=== PATIENT | female | born 1985 | race Caucasian/White ===

== ENCOUNTER → 2016-05-09 | Outpatient (REF) | payer BC | END | disposition home or self-care (01) | LOC: M SFHCCLAY 11:06 | PROVIDERS: ATTEND Family Medicine | DX: J02.9 Acute pharyngitis, unspecified (principal) ==

== ENCOUNTER → 2016-08-06 | Day surgery (SDC) | payer BC ==
[~2016-08-06] VITALS: Ht 160 cm; Wt 85.3 kg
[~2016-08-06] MED LIST: CEFUROXIME INJ 750 MG VIAL (J0697) As Ordered ONE; EXCETAB80 PO; LIDOCAINE 2% INJ 100 MG/5 ML SDV (FOR ANES.) As Ordered ONE; LIDOCAINE W/EPINEPHRINE 1% 20ML VIAL As Ordered ONE; LR 1,000 ML IV SCH; MIDAZOLAM INJ 2 MG/2 ML VIAL (J2250) As Ordered ONE; ONDANSETRON 4MG/2ML VIAL (J2405) As Ordered ONE; ONDANSETRON 4MG/2ML VIAL (J2405) IV PRN; PERCOCET 5MG/325MG TAB As Ordered ONE; PERCOCET 5MG/325MG TAB PO PRN; PREG25CA PO; PRENTAB40 PO; PREV30CA11 PO; PROPOFOL 500 MG/50 ML VIAL As Ordered ONE; XANA0.5T PO; dexameTHASONE 4 MG/ML 1ML VIAL (J1100) As Ordered ONE; dexameTHASONE 4 MG/ML 1ML VIAL (J1100) IV ONE; fentaNYL 100 MCG/2 ML INJECTION (J3010) As Ordered ONE; fentaNYL 100 MCG/2 ML INJECTION (J3010) IV PRN
[2016-08-06 09:02] LABS: CONTROL LINE UCG INT CTR LINE PRESENT
[2016-08-06 13:15] VITALS: BP 131/63
--- NOTE | 2016-08-14 23:15 | RO ---
DATE OF PROCEDURE: 08/06/2016 PREOPERATIVE DIAGNOSIS: Two left posterolateral neck masses in the posterior triangle. POSTOPERATIVE DIAGNOSIS: Two left posterolateral neck masses in the posterior triangle. OPERATIVE PROCEDURE: Excision of 3 cm left neck mass and excision of 1 cm left neck mass. SURGEON: Hardy Davis MD ASSISTANT PROFESSOR OF THEATER: ANESTHESIA: General CLINICAL PREAMBLE: This 31-year-old woman presented to the office with a slowly enlarging left neck mass measuring about 3 cm in size. Superior to the mass, she also could palpate a smaller mass lesion. Management options, including excision of the mass lesions, have been discussed. Patient understood and consented to the procedure. DESCRIPTION OF PROCEDURE: Patient was identified in preoperative holding and had the left neck marked. She was brought to the operating room in stable condition. In supine position on the operating table, patient received general anesthesia followed by orotracheal intubation without incident. No further paralytic agent was used throughout the remainder of the case. The left postauricular area in the posterior triangle region was prepped and draped in the usual fashion for the procedure. Some of the hair was then shaved to allow good exposure of the mass lesion. A curvilinear incision was outlined over the 3 cm mass lesion. The incision was made, and the capsule of the mass was identified and dissected out en bloc. Cheesy material was noted inside the capsule of the mass lesion. The 1 cm mass lesion was palpated superior to this larger lesion. Dissection was then carried out superiorly to reach this mass lesion. The mass was then successfully resected en bloc, as well. This measured approximately 1 cm in size. Hemostasis was achieved using bipolar electrocautery. The skin was then closed using #4-0 Vicryl and then using Dermabond for final skin closure. At the end of the procedure, sponge and instrument counts were correct. No complication was encountered. Estimated blood loss was less than 5 mL. General anesthesia was reversed, and patient was extubated and brought to recovery room in stable condition.
== END | disposition home or self-care (01) ==
LOC: M SDC 08:27
PROVIDERS: ATTEND Otolaryngology
DX: L72.0 Epidermal cyst (principal); D64.9 Anemia, unspecified; M54.2 Cervicalgia; F41.9 Anxiety disorder, unspecified; J31.0 Chronic rhinitis; J32.0 Chronic maxillary sinusitis; J34.2 Deviated nasal septum; Z88.8 Allergy status to other drugs, medicaments and biological substances; Z79.899 Other long term (current) drug therapy; Z72.0 Tobacco use; Z85.828 Personal history of other malignant neoplasm of skin
CPT/HCPCS: 21552; 21555; 84703; 88305; J0697; J1100; J2250; J2405; J3010

== ENCOUNTER → 2017-01-13 | Outpatient (CLI) | payer BC ==
[~2017-01-13] MED LIST changes: -CEFUROXIME INJ 750 MG VIAL (J0697) As Ordered ONE; -LIDOCAINE 2% INJ 100 MG/5 ML SDV (FOR ANES.) As Ordered ONE; -LIDOCAINE W/EPINEPHRINE 1% 20ML VIAL As Ordered ONE; -LR 1,000 ML IV SCH; -MIDAZOLAM INJ 2 MG/2 ML VIAL (J2250) As Ordered ONE; -ONDANSETRON 4MG/2ML VIAL (J2405) As Ordered ONE; -ONDANSETRON 4MG/2ML VIAL (J2405) IV PRN; -PERCOCET 5MG/325MG TAB As Ordered ONE; -PERCOCET 5MG/325MG TAB PO PRN; +PREV1CAP PO; -PREV30CA11 PO; -PROPOFOL 500 MG/50 ML VIAL As Ordered ONE; -dexameTHASONE 4 MG/ML 1ML VIAL (J1100) As Ordered ONE; -dexameTHASONE 4 MG/ML 1ML VIAL (J1100) IV ONE; -fentaNYL 100 MCG/2 ML INJECTION (J3010) As Ordered ONE; -fentaNYL 100 MCG/2 ML INJECTION (J3010) IV PRN
--- NOTE | 2017-01-13 10:39 | REP ---
Obstetric sonography: History: Supervision of , for anatomy. Findings: Scanning through the gravid uterus demonstrates a viable single intrauterine gestation in a cephalic lie. motion is observed and heart rate is recorded at 153 beats per minute. A posterior grade 0 placenta is seen without evidence of previa or abruption. Amniotic fluid is subjectively normal. Closed cervical length is 4.3 cm, measured transabdominally. No extrauterine abnormality is observed. No anomaly is seen. Facial profile is observed but nose and lips are less than optimally seen due to position. The following additional anatomic structures are identified and felt to be sonographically unremarkable: cranium, choroid plexus, cavum, cerebellum and posterior fossa, lungs, four-chamber heart with left and right ventricular outflow tract views, diaphragm, left-sided stomach, abdominal wall cord insertion, three-vessel umbilical cord, kidneys and bladder, spine, upper and lower extremities. Biometry chart: BPD 4.5 cm 19 weeks 4 days Head circumference 16.5 cm 19 weeks 2 days Abdominal circumference 15.2 cm 20 weeks 3 days Femur length 2.9 cm 19 weeks 0 days Humeral length 3.0 cm 19 weeks 6 days HC/AC ratio normal 1.09. Cephalic index normal 0.76. Estimated weight 307 grams 0 pounds 10 ounces, 69th percentile for 19 weeks 1 day. Impression: Viable single intrauterine gestation at 19 weeks 4 days by today's composite sonographic criteria. ENID by today's sonography June 05, 2017. nose and lips less than optimally seen. anatomic survey otherwise complete. Signed by Jomar Jung MD 01/13/2017 03:04 P
== END ==
LOC: M RAD 08:10
PROVIDERS: ATTEND Obstetrics & Gynecology
DX: Z36.89 Encounter for other specified antenatal screening (principal); Z3A.19 19 weeks gestation of pregnancy

== ENCOUNTER → 2017-01-29 | Outpatient (CLI) | payer BC ==
--- NOTE | 2017-01-30 07:56 | REP ---
Clinical: Anatomical evaluation. Comparison: 01/13/2017 . Findings: Examination demonstrates a single live intrauterine in cephalic presentation. motion is identified by technologist. Placenta is noted posteriorly and grade 0 without evidence for placenta previa or abruption. Amniotic fluid volume is normal. Cervix measures 5.8 cm in length and appears closed. No evidence for nuchal cord. Gestational age by LMP 21 weeks 3 days with ENID 06/08/2017 . Gestational age by current measurements 21 weeks 6 days with ENID 06/05/2017 . FHR equals 146 beats per minute. Estimated weight 448 grams ( 57th percentile). Anatomical assessment demonstrates normal structures including cranium, choroid plexus, cavum, cerebellum/posterior fossa, facial features, lungs, four-chamber heart/ventricular outflow tracts, diaphragm, stomach, cord insertion/three-vessel cord, kidneys/bladder, spine, and extremities. Impression: Single live intrauterine in cephalic presentation demonstrating appropriate interval growth. In conjunction with prior examination anatomical assessment is complete and normal. No gross abnormalities are identified. Signed by Adria Mckenzie MD 01/30/2017 07:48 A
== END ==
LOC: M RAD 08:41
PROVIDERS: ATTEND Obstetrics & Gynecology
DX: Z34.82 Encounter for supervision of other normal pregnancy, second trimester (principal); Z3A.21 21 weeks gestation of pregnancy

== ENCOUNTER → 2017-03-05 | Outpatient (CLI) | payer BC | LOC: M LAB 07:50 | PROVIDERS: ATTEND Obstetrics & Gynecology | DX: Z34.82 Encounter for supervision of other normal pregnancy, second trimester (principal) ==

== ENCOUNTER 2017-06-02 09:28 | Inpatient (IN) | payer OTHER, BC, SELFPAY ==
[2017-06-02] MEDS: miSOPROStol 50 MCG 1/2 TAB (S0191) PO ×3 (11:19→19:30)
[2017-06-02 11:35] LABS: HEMATOCRIT 26.4 % (36.0-47.0); HEMOGLOBIN 7.9 g/dl (12.0-16.0); MEAN CORPUSCULAR HEMOGLOBIN 22.2 pg (27.0-33.0); MEAN CORPUSCULAR HGB CONC 29.9 g/dl (32.0-36.5); MEAN CORPUSCULAR VOLUME 74.2 fl (80.0-96.0); PLATELET COUNT, AUTOMATED 385 10^3/uL (150-450); RED BLOOD COUNT 3.56 10^6/uL (4.00-5.40); RED CELL DISTRIBUTION WIDTH 15.3 % (11.5-14.5); WHITE BLOOD COUNT 7.8 10^3/uL (4.0-10.0)
[2017-06-02] MEDS ORDERED: PENICILLIN G POTASSIUM IV 5 MU in D5W MINI-BAG PLUS 100 ML IV (12:34)
[2017-06-02] MEDS ORDERED: PENICILLIN G POTASSIUM IV 2.5 MU in APPROPRIATE DILUENT 1 EA IV (16:45)
[2017-06-02] MEDS: BUTORPHANOL 2 MG/ML INJ (J0595) IV (20:40)
[2017-06-02] MEDS: LR 1,000 ML IV (20:40)
[2017-06-02] MEDS: PROMETHAZINE INJ 25 MG/ML VIAL (J2550) IV (20:40)
[2017-06-02] MEDS: OXYTOCIN DRIP 30 UNITS in APPROPRIATE DILUENT 1 EA IV (20:41)
[2017-06-02] MEDS: PENICILLIN G POTASSIUM IV 5 MU in D5W MINI-BAG PLUS 100 ML IV (23:56)
[2017-06-03] MEDS ORDERED: ANUSOL HC CREAM 30GM TOP (01:30)
[2017-06-03] MEDS ORDERED: MOM 30ML SUSPENSION UDC PO (01:30)
[2017-06-03] MEDS ORDERED: DIBUCAINE 1% OINTMENT 30GM TOP (01:30)
[2017-06-03] MEDS ORDERED: ONDANSETRON 4MG/2ML VIAL (J2405) IV (01:30)
[2017-06-03] MEDS ORDERED: DOCUSATE SODIUM 100 MG CAP PO (01:30)
[2017-06-03] MEDS ORDERED: METHYLERGONOVINE MALEATE 0.2 MG TAB PO (01:30)
[2017-06-03] MEDS ORDERED: RHOGAM 300 MCG (1500 IU) INJ (J2790) IM (01:30)
[2017-06-03] MEDS: IBUPROFEN 800 MG TAB PO ×2 (02:28→12:35)
[2017-06-03] MEDS ORDERED: PENICILLIN G POTASSIUM IV 2.5 MU in APPROPRIATE DILUENT 1 EA IV (04:30)
[2017-06-03] MEDS: miSOPROStol 50 MCG 1/2 TAB (S0191) PO (07:23)
[2017-06-03] MEDS: ACETAMINOPHEN 500 MG TAB PO ×2 (08:11→18:23)
[2017-06-03] MEDS: PRENATAL VITAMINS CHEWABLE TABLET PO (09:00)
[2017-06-04] MEDS: IBUPROFEN 800 MG TAB PO ×2 (00:03→08:07)
[2017-06-04] MEDS: PRENATAL VITAMINS CHEWABLE TABLET PO (08:07)
[2017-06-04] MEDS: ACETAMINOPHEN 500 MG TAB PO (16:15)
[2017-06-05] MEDS: IBUPROFEN 800 MG TAB PO (01:05)
[2017-06-05] MEDS: PRENATAL VITAMINS CHEWABLE TABLET PO (09:27)
[2017-06-05] MEDS: ADACEL/BOOSTRIX VACCINE (DIPHTH/PERTUSS/ACELL/TETANUS)0.5ML SYR (90715) IM (10:00)
[2017-06-05] MEDS: MEASLES,MUMPS,RUBELLA VACCINE INJ (MMR-II) (90707) SC (10:07)
== END 2017-06-05 10:30 | disposition home or self-care (01) | DRG 775 ==
LOC: M LDI 09:28 → M OBS 06-03 03:20
PROVIDERS: Obstetrics & Gynecology
PROC: 10E0XZZ Delivery of Products of Conception, External Approach (ICD-10-PCS; principal; 2017-06-02)
PROC: 3E0DXGC Introduction of Other Therapeutic Substance into Mouth and Pharynx, External Approach (ICD-10-PCS; 2017-06-02)
DX: O80 Encounter for full-term uncomplicated delivery (principal); Z37.0 Single live birth; Z3A.39 39 weeks gestation of pregnancy

== ENCOUNTER 2017-10-31 08:47 | Day surgery (SDC) | payer OTHER ==
[~2017-10-31 08:47] MED LIST changes: -EXCETAB80 PO; +GLYCOPYRROLATE INJ 0.2 MG/ML 2 ML VIAL As Ordered; +HYDROmorphone HCL 2 MG/ML 1ML VIAL (J1170) As Ordered; +KETOROLAC 60 MG/2 ML VIAL (J1885) As Ordered; +LIDOCAINE 2% INJ 100 MG/5 ML SDV (FOR ANES.) As Ordered; +MIDAZOLAM INJ 2 MG/2 ML VIAL (J2250) As Ordered; +NEOSTIGMINE 10 MG/10 ML VIAL (J2710) As Ordered; +ONDANSETRON 4MG/2ML VIAL (J2405) As Ordered; -PREG25CA PO; -PRENTAB40 PO; -PREV1CAP PO; +PROPOFOL 200 MG/20 ML VIAL As Ordered; +ROCURONIUM BROMIDE 50 MG/5 ML VIAL As Ordered; -XANA0.5T PO; +dexameTHASONE 4 MG/ML 1ML VIAL (J1100) As Ordered; +fentaNYL 100 MCG/2 ML INJECTION (J3010) As Ordered
[2017-10-31 09:25] LABS: MEAN CORPUSCULAR HEMOGLOBIN 25.3 pg (27.0-33.0); MEAN CORPUSCULAR HGB CONC 31.6 g/dl (32.0-36.5); MEAN CORPUSCULAR VOLUME 80.2 fl (80.0-96.0); PLATELET COUNT, AUTOMATED 284 10^3/uL (150-450); RED BLOOD COUNT 4.74 10^6/uL (4.00-5.40); RED CELL DISTRIBUTION WIDTH 15.9 % (11.5-14.5); WHITE BLOOD COUNT 6.2 10^3/uL (4.0-10.0)
[2017-10-31 09:40] LABS: CONTROL LINE HCG INT CTR LINE PRESENT; HCG, SERUM QUALITATIVE NEGATIVE (NEGATIVE)
[2017-10-31] MEDS: LR 1,000 ML IV ×3 (11:01→13:45)
[2017-10-31] MEDS ORDERED: ROCURONIUM BROMIDE 50 MG/5 ML VIAL As Ordered (12:17)
[2017-10-31] MEDS: BUPIVACAINE HCL 0.25% 30 ML VIAL As Ordered (13:12)
[2017-10-31] MEDS ORDERED: PERCOCET 5MG/325MG TAB PO ×2 (14:00)
[2017-10-31] MEDS ORDERED: zolPIDEM TARTRATE 10MG TAB PO (14:00)
[2017-10-31] MEDS: PERCOCET 5MG/325MG TAB PO ×2 (14:00→14:26)
[2017-10-31] MEDS ORDERED: MORPHINE 4 MG/ML 1ML VIAL/SYRINGE (J2270) IV (14:00)
[2017-10-31] MEDS ORDERED: PROMETHAZINE INJ 25 MG/ML VIAL (J2550) IV (14:00)
[2017-10-31] MEDS: ONDANSETRON 4MG/2ML VIAL (J2405) IV (14:05)
[2017-10-31] MEDS: fentaNYL 100 MCG/2 ML INJECTION (J3010) IV ×4 (14:25→14:42)
[2017-10-31] MEDS: KETOROLAC 30 MG/ML VIAL (J1885) IV (18:30)
== END 2017-10-31 20:30 | disposition home or self-care (01) ==
LOC: M SDC 08:47 → M PED 14:58 → M SDC 20:30
DX: N92.6 Irregular menstruation, unspecified (principal); K21.9 Gastro-esophageal reflux disease without esophagitis; F41.9 Anxiety disorder, unspecified; F32.9 Major depressive disorder, single episode, unspecified; D64.9 Anemia, unspecified; Z88.8 Allergy status to other drugs, medicaments and biological substances; Z79.899 Other long term (current) drug therapy
CPT/HCPCS: 58573

== ENCOUNTER → 2018-04-25 | Outpatient (CLI) | payer OTHER ==
[~2018-04-25] MED LIST changes: +EXCETAB80 PO; -GLYCOPYRROLATE INJ 0.2 MG/ML 2 ML VIAL As Ordered; -HYDROmorphone HCL 2 MG/ML 1ML VIAL (J1170) As Ordered; +IBUP-1114 PO; -KETOROLAC 60 MG/2 ML VIAL (J1885) As Ordered; -LIDOCAINE 2% INJ 100 MG/5 ML SDV (FOR ANES.) As Ordered; +MAPA500T2 PO; -MIDAZOLAM INJ 2 MG/2 ML VIAL (J2250) As Ordered; +MYLASUS16 PO; -NEOSTIGMINE 10 MG/10 ML VIAL (J2710) As Ordered; -ONDANSETRON 4MG/2ML VIAL (J2405) As Ordered; +OXYC1TAB23 PO; +PANT40TA3 PO; +PREG25CA PO; +PRENTAB40 PO; +PREV1CAP PO; -PROPOFOL 200 MG/20 ML VIAL As Ordered; -ROCURONIUM BROMIDE 50 MG/5 ML VIAL As Ordered; +XANA0.5T PO; -dexameTHASONE 4 MG/ML 1ML VIAL (J1100) As Ordered; -fentaNYL 100 MCG/2 ML INJECTION (J3010) As Ordered
--- NOTE | 2018-04-27 08:57 | REP ---
MR LUMBAR SPINE WITHOUT CONTRAST: HISTORY: Back pain. COMPARISON: 01/27/2013. Decreased signal intensity on T2-weighted images in the L4-5 intervertebral disc. This represents disc degeneration. There is no disc bulge or herniation of the L1-2 through L3-4 levels. The nerves exit the neural foramina without compression. A diffuse disc bulge is present at the L4-5 level. There is minimal compression of the thecal sac. The L4 nerves exit the neural foramina without compression. A diffuse disc bulge is present at the L5-S1 level. This abuts the thecal sac. There is hypertrophy of the posterior articulating facets. The L5 nerves exit the neural foramina without compression. The conus medullaris is normal in appearance terminating at the level of the L1-2 intervertebral disc. Increased signal intensity on T2-weighted images is present in the superior endplate of the L1 vertebral body. This represents degenerative change. IMPRESSION: 1. Diffuse disc bulge at the L4-5 level with minimal thecal sac compression. 2. Diffuse disc bulge at the L5-S1 level. This abuts the thecal sac. Electronically Signed by Rogelio Ortega MD 04/27/2018 09:15 A
== END ==
LOC: M RAD 09:17
PROVIDERS: ATTEND Family Medicine
DX: M51.17 Intervertebral disc disorders with radiculopathy, lumbosacral region (principal)

== ENCOUNTER → 2018-05-29 | Outpatient (CLI) | payer OTHER ==
--- NOTE | 2018-05-29 15:53 | REP ---
THORACIC SPINE, FOUR VIEWS: HISTORY: Thoracic pain. There is no acute fracture or subluxation. There is loss of height of several mid and lower thoracic intervertebral discs. IMPRESSION: Degenerative change as described above.
--- NOTE | 2018-05-29 16:01 | REP ---
CERVICAL SPINE, SEVEN VIEWS: HISTORY: Cervicalgia. There is no acute fracture or subluxation. The intervertebral discs are normal in height. The neural foramina are patent. IMPRESSION: There is no acute fracture or subluxation.
== END ==
LOC: M CLY 14:54
PROVIDERS: ATTEND Family Medicine
DX: M51.34 Other intervertebral disc degeneration, thoracic region (principal); M54.2 Cervicalgia
CPT/HCPCS: 72050; 72072; G0463

== ENCOUNTER → 2018-10-01 | Outpatient (REF) | payer OTHER ==
[2018-10-01 16:44] LABS: BASO # 0.1 10^3/uL (0.0-0.2); BASO % 0.7 % (0.0-1.0); EOS # 0.1 10^3/uL (0.0-0.50); EOS % 1.3 % (0.0-3.0); HEMATOCRIT 43.1 % (36.0-47.0); HEMOGLOBIN 14.2 g/dl (12.0-15.5); LYMPH # 2.3 10^3/uL (1.5-4.5); MEAN CORPUSCULAR HGB CONC 32.9 g/dl (32.0-36.5); MEAN CORPUSCULAR VOLUME 88.1 fl (80.0-96.0); MONO # 0.5 10^3/uL (0.0-0.8); MONO % 5.7 % (0.0-5.0); NEUTROPHILS # 5.5 10^3/uL (1.8-7.7); NEUTROPHILS % 65.1 % (36.0-66.0); PLATELET COUNT, AUTOMATED 367 10^3/uL (150-450); RED BLOOD COUNT 4.89 10^6/uL (4.00-5.40); WHITE BLOOD COUNT 8.4 10^3/uL (4.0-10.0)
[2018-10-01 16:48] LABS: C REACTIVE PROTEIN QUANTITATIV 0.47 MG/DL (0.00-0.30); RHEUMATOID FACTOR QUANT < 10.0 IU/ML (<15.0)
[2018-10-01 17:09] LABS: ERYTHROCYTE SEDIMENTATION RATE 6 mm/hr (0-20)
[2018-10-03 15:34] LABS: ANTINUCLEAR ANTIBODIES DIRECT Negative (Negative); Lyme Disease IgG/IgM Antibodie <0.91 ISR (0.00-0.90); Lyme Disease IgM Ab Quantitati <0.80 index (0.00-0.79)
== END ==
LOC: M LABDRAWC 16:02
PROVIDERS: ATTEND Orthopaedic Surgery
DX: M17.12 Unilateral primary osteoarthritis, left knee (principal)

== ENCOUNTER → 2019-12-08 | Outpatient (CLI) | payer OTHER ==
[~2019-12-08] MED LIST changes: +PANT40TA29 PO; -PANT40TA3 PO
== END ==
LOC: M LABSMTC 10:04
PROVIDERS: ATTEND Orthopaedic Surgery
DX: Z03.818 Encounter for observation for suspected exposure to other biological agents ruled out (principal); Z11.59 Encounter for screening for other viral diseases

== ENCOUNTER → 2021-06-11 | Outpatient (CLI) | payer OTHER | LOC: M WHC 09:01 | PROVIDERS: ATTEND Obstetrics & Gynecology | DX: N83.01 Follicular cyst of right ovary (principal) ==

== ENCOUNTER → 2022-11-15 | Outpatient (REF) | payer OTHER ==
[2022-11-15 18:01] LABS: ALBUMIN 4.2 G/DL (3.2-5.2); ALKALINE PHOSPHATASE 73 U/L (46-116); ALT/SGPT 24 U/L (7.0-40); AST/SGOT < 8 U/L (<34); BILIRUBIN,TOTAL 0.4 MG/DL (0.3-1.2); BLOOD UREA NITROGEN 11 MG/DL (9-23); CALCIUM LEVEL 9.4 MG/DL (8.5-10.1); CARBON DIOXIDE LEVEL 26 MMOL/L (20-31); CHLORIDE LEVEL 104 MMOL/L (98-107); CREATININE FOR GFR 0.67 MG/DL (0.55-1.30); GLOMERULAR FILTRATION RATE > 60.0 (>60); GLUCOSE, FASTING 92 MG/DL (60-100); POTASSIUM SERUM 4.2 MMOL/L (3.5-5.1); SODIUM LEVEL 138 MMOL/L (136-145); TOTAL PROTEIN 7.1 G/DL (5.7-8.2)
[2022-11-15 18:32] LABS: HEPATITIS B CORE ANTIBODY IGM NEGATIVE (NEGATIVE)
[2022-11-15 18:33] LABS: HEPATITIS C VIRUS ABY INDEX 0.13 INDEX (<0.8)
== END ==
LOC: M SFHCCLAY 10:33
PROVIDERS: ATTEND Family Medicine
DX: Z20.5 Contact with and (suspected) exposure to viral hepatitis (principal)